=== PATIENT | female | born 1935 | race Caucasian/White ===

== ENCOUNTER 2023-05-09 11:55 | Emergency (ER) | payer OTHER ==
[~2023-05-09] VITALS: Ht 165.1 cm; Wt 77.1 kg
[2023-05-09 12:00] VITALS: BP_SYST 138; PULSE 82; RESP 18; TEMP 97.7; O2SAT 95
== END 2023-05-09 12:53 | disposition home or self-care (01) ==
LOC: SED 11:55
DX: H66.92 Otitis media, unspecified, left ear (principal); I10 Essential (primary) hypertension; Z79.899 Other long term (current) drug therapy
CPT/HCPCS: 99283